=== PATIENT | male | born 2000 | race Caucasian/White ===

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

== ENCOUNTER 2020-02-20 13:22 | Emergency (ER) | payer OTHER ==
[~2020-02-20] VITALS: Ht 167.6 cm; Wt 57.6 kg
[~2020-02-20 13:22] MED LIST changes: +CIPROFLOXIN HC2.5 M1 OTIC
[2020-02-20] MEDS ORDERED: CIPROFLOXIN HC2.5 M1 OPHTHALMIC (14:06)
[2020-02-20 14:12] VITALS: BP 122/73
== END 2020-02-20 14:13 | disposition home or self-care (01) ==
LOC: M.ERS 13:22
DX: T15.02XA Foreign body in cornea, left eye, initial encounter (principal); X58.XXXA Exposure to other specified factors, initial encounter; Y93.89 Activity, other specified; Y92.89 Other specified places as the place of occurrence of the external cause; Y99.8 Other external cause status